=== PATIENT | female | born 1980 | race Caucasian/White ===

== ENCOUNTER 2017-05-30 08:19 | Emergency (ER) | payer MEDICAID ==
[2017-05-30] MEDS: HYDROCODONE/APAP (5/325) TAB PO (09:01)
[2017-05-30] MEDS: ONDANSETRON (ODT) 4 MG TAB ODT (09:01)
== END 2017-05-30 09:26 | disposition home or self-care (01) ==
LOC: FTE 08:19
DX: G43.909 Migraine, unspecified, not intractable, without status migrainosus (principal)
CPT/HCPCS: 99284; Z7502